=== PATIENT | female | born 1955 | race Caucasian/White ===

== ENCOUNTER 2023-07-08 09:39 | Outpatient (CLI) | payer BC, MEDICARE | END 2023-07-08 09:40 | disposition home or self-care (01) | LOC: CSHCT 09:39 | PROVIDERS: ATTEND Family Medicine | DX: J44.9 Chronic obstructive pulmonary disease, unspecified (principal); Z12.2 Encounter for screening for malignant neoplasm of respiratory organs; Z87.891 Personal history of nicotine dependence | CPT/HCPCS: 71271; 94060; 94664; 94726; 94729; 94760 ==

== ENCOUNTER 2023-07-08 10:47 | Outpatient (CLI) | payer BC, MEDICARE | END 2023-07-08 10:48 | disposition home or self-care (01) | LOC: CSHMAMMO 10:47 | PROVIDERS: ATTEND Family Medicine | DX: Z12.31 Encounter for screening mammogram for malignant neoplasm of breast (principal); Z13.820 Encounter for screening for osteoporosis; M85.89 Other specified disorders of bone density and structure, multiple sites; Z78.0 Asymptomatic menopausal state | CPT/HCPCS: 77063; 77067; 77080 ==